=== PATIENT | female | born 1990 | race Caucasian/White ===

== ENCOUNTER 2021-08-04 20:18 | Outpatient (CLI) | payer OTHER ==
[2021-08-04 20:41] VITALS: BP 110/71
[2021-08-04] MEDS ORDERED: LACTATED RINGERS 1,000 ML ONE (21:07)
[2021-08-04 21:46] LABS: Basophils % (Auto) 0.1 % (0.0-1.8); Eosinophils # (Auto) 0.1 K/mm3 (0.0-0.4); Eosinophils % (Auto) 0.6 % (0.0-4.3); Hemoglobin 11.5 gm/dl (10.1-14.3); Lymphocytes # (Auto) 1.7 K/mm3 (1.2-5.4); Lymphocytes % (Auto) 15.1 % (13.4-35.0); Monocytes % (Auto) 8.6 % (0.0-7.3)
[2021-08-04 21:55] LABS: Bilirubin,Urine NEG (Negative); Blood,Urine SM (Negative); Color,Urine Yellow (Yellow); Mucus,Urine 1+ /HPF; Protein,Urine <15 mg/dL mg/dL (Negative); Urobilinogen,Urine < 2.0 mg/dL (<2.0)
[2021-08-04 21:58] LABS: Hematocrit 35.8 % (30.3-42.9); Mean Corpuscular HGB Conc 33 % (30-34); Mean Corpuscular Volume 78 fl (79-97); Platelet Count 373 K/mm3 (140-440); Red Blood Count 4.57 M/mm3 (3.65-5.03); Red Cell Distribution Width 15.1 % (13.2-15.2)
--- NOTE | 2021-08-04 23:20 | Ultrasound Report ---
ULTRASOUND OBSTETRIC LIMITED INDICATION / CLINICAL INFORMATION: Oligohydramnios, Previous . Clinical Gestational Age (GA) in weeks, days: 38 weeks 3 days TECHNIQUE: Transabdominal. COMPARISON: None available. FINDINGS: HEART RATE (beats per minute): 141 AMNIOTIC FLUID INDEX (cm) = 8.5 (normal = 7-24 cm) PRESENTATION: Cephalic. ADDITIONAL FINDINGS: None. IMPRESSION: 1. No significant abnormality. 2. CLEMENTINA measures 8.5 cm, within normal limits. Signer Name: En Amato MD Signed: 08/04/2021 11:15 PM Workstation Name: [id number]
[2021-08-04] MEDS ORDERED: MORPHINE 2 MG/1 ML INJ ONE (23:46)
[2021-08-04] MEDS ORDERED: MORPHINE 4 MG/1 ML INJ ONE (23:47)
[2021-08-04] MEDS ORDERED: MORPHINE 10 MG/1 ML INJ IM ONE (23:48)
--- NOTE | 2021-08-05 04:04 | Ultrasound Report ---
ULTRASOUND OBSTETRIC COMPLETE INDICATION / CLINICAL INFORMATION: EFW. Clinical Gestational Age (GA) in weeks, days: 38 weeks 4 days TECHNIQUE: Transabdominal. COMPARISON: None available. FINDINGS: Single intrauterine in cephalic presentation. MEASUREMENTS: - Biparietal Diameter = 9.0 cm = 36 weeks 3 days - Head Circumference = 31.7 cm = 35 weeks 4 days - Abdominal Circumference = 32.3 cm = 36 weeks 1 day - Femur Length = 7.0 cm = 36 weeks 0 days - Estimated Weight (in grams, if calculated): 2847 - Heart Rate (beats per minute): 149 ADDITIONAL FINDINGS: None. PERCENTILE ESTIMATED WEIGHT (if calculated): Not calculated AVERAGE ULTRASOUND AGE (AUA) in weeks, days = 36 weeks 0 days IMPRESSION: 1. Single intrauterine with AUA of 36 weeks 0 days. Estimated weight is 2847 g. Clini goyo gestational age is reported as 38 weeks and 4 days. Recommend clinical correlation. Signer Name: En Amato MD Signed: 08/05/2021 3:59 AM Workstation Name: [id number]
== END 2021-08-05 07:31 | disposition home or self-care (01) ==
LOC: TRG 20:18 → APU 20:19 → TRG 08-05 07:31
PROVIDERS: ATTEND Obstetrics & Gynecology
DX: Z34.93 Encounter for supervision of normal pregnancy, unspecified, third trimester (principal); Z3A.38 38 weeks gestation of pregnancy
CPT/HCPCS: 36415; 76815; 76816; 81001; 83036; 84112; 85025; J2270

== ENCOUNTER 2021-08-05 23:47 | Inpatient (IN) | payer OTHER ==
[2021-08-06] MEDS ORDERED: LACTATED RINGERS 1,000 ML IV ONE (00:20)
[2021-08-06] MEDS ORDERED: MORPHINE 2 MG/1 ML INJ IM ONE (01:34)
[2021-08-06] MEDS ORDERED: fentaNYL 100 MCG/2 ML INJ IV PRN (04:58)
[2021-08-06] MEDS ORDERED: TERBUTALINE 1 MG/1 ML INJ SUB-Q PRN (04:58)
[2021-08-06] MEDS ORDERED: LIDOCAINE (2%) 20 MG/1 ML VIAL 20 ML MDV INFILTRATI ONE (04:58)
[2021-08-06] MEDS ORDERED: METHYLERGONOVINE MALEATE 0.2 MG/ML VIAL IM PRN (04:58)
[2021-08-06] MEDS ORDERED: CARBOPROST TROMETHAMINE 250 MCG/1 ML INJ IM PRN (04:58)
[2021-08-06] MEDS ORDERED: ePHEDrine SULFATE 50 MG/1 ML INJ IV PRN ×2 (04:58→08:00)
[2021-08-06] MEDS ORDERED: miSOPROStol 200 MCG TAB PR PRN (04:58)
[2021-08-06] MEDS ORDERED: BUTORPHANOL 2 MG/1 ML INJ IV PRN (04:58)
[2021-08-06] MEDS ORDERED: ACETAMINOPHEN 325 MG TAB PO PRN (04:58)
[2021-08-06] MEDS ORDERED: OXYTOCIN DRIP 30 UNITS/500 ML BAG IV SCH (05:00)
--- NOTE | 2021-08-06 05:18 | History and Physical Report ---
History of Present Illness Date of examination: 08/06/21 Date of admission: 08/06/2021 Chief complaint: Contractions History of present illness: 30 y/o at 38-6/7 weeks presents to OBT reporting regular and painful CTX q 5 minutes. No VB or LOF. Good FM. She came to OBT yesterday with the same complaints, given morphine rest, had no cervical change (ftp dilation), and discharged home. Today, cervix changed to 1 cm dilation after receiving morphine rest again. She has a history of previous x2. She is admitted to L&D for further evaluation and management. Past History Past Medical History: no pertinent history Past Surgical History: section Family/Genetic History: none Social history: no significant social history - Obstetrical History Expected Date of Delivery: 08/14/21 Actual Gestation: 38 Week(s) 6 Day(s) : 3 Para: 2 Hx # Term Pregnancies: 2 Medications and Allergies Allergies Allergy/AdvReac Type Severity Reaction Status Date / Time No Known Allergies Allergy Verified 08/04/21 20:47 Review of Systems All systems: negative - Vital Signs Vital signs: Vital Signs Resp 16 08/06/21 02:03 Temp Pulse Resp BP Pulse Ox 16 08/06/21 02:03 - Physical Exam Breasts: Positive: normal Cardiovascular: Regular rate Lungs: Positive: Normal air movement Abdomen: Positive: normal appearance Genitourinary (Female): Positive: normal external genitalia Vulva: both: normal Vagina: Positive: normal moisture Uterus: Positive: enlarged Adnexa: both: normal Anus/Rectum: Positive: normal perianal skin Extremities: Positive: normal Deep Tendon Reflex Grade: Normal +2 - Obstetrical FHR: category 1 Uterine Contraction Monitor Mode: External Cervical Dilatation: 1 Cervical Effacement Percentage: 90 station: -3 Uterine Contraction Frequency (min): 5 Uterine Contraction Pattern: Regular Results Result Diagrams: 08/06/21 06:20 All other labs normal. Ultrasound: report reviewed (OB US Limited (08/04/2021)= SLIUP. Vertex. EFW= 2847 g (12th %-ile). CLEMENTINA= 8.5 cm.) Assessment and Plan - Patient Problems (1) 38 weeks gestation of Current Visit: Yes Status: Acute Plan to address problem: care is up-to-date. GBS (-). (2) Labor abnormality, antepartum Current Visit: Yes Status: Acute Plan to address problem: The patient is currently in latent labor. She received morphine rest yesterday and again today with cervical exam of 1/90%/-3. Epidural to be placed for pain control. Re-examine thereafter. (3) Previous delivery, antepartum Current Visit: Yes Status: Acute Plan to address problem: The patient has 2 previous c-sections.
[2021-08-06 06:35] LABS: Hematocrit 33.3 % (30.3-42.9); Hemoglobin 11.6 gm/dl (10.1-14.3); Mean Corpuscular HGB Conc 35 % (30-34); Mean Corpuscular Volume 78 fl (79-97); Platelet Count 370 K/mm3 (140-440); Red Blood Count 4.29 M/mm3 (3.65-5.03); Red Cell Distribution Width 14.9 % (13.2-15.2)
[2021-08-06] MEDS ORDERED: LACTATED RINGERS 250 ML IV SOLN IV ONE (07:10)
--- NOTE | 2021-08-06 07:55 | Ultrasound Report ---
US OB transvaginal INDICATION / CLINICAL INFORMATION: Previous COMPARISON: None available. FINDINGS/IMPRESSION: Limited sonographic evaluation of the pelvis to evaluate the lower uterine segment wall. Anterior low er uterine segment wall measures 1.3 cm is. Posterior wall is not visualized due to shadowing from a baby's head. Cervical length measures 2.2 cm. Signer Name: En Amato MD Signed: 08/06/2021 7:51 AM Workstation Name: [id number]
[2021-08-06] MEDS ORDERED: fentaNYL-BUPIV 2 MCG/ML-0.125% 200 MCG/100 ML BAG EPIDURAL SCH (08:00)
[2021-08-06] MEDS ORDERED: NalbUPHINE 10 MG/1 ML INJ IV PRN (08:00)
[2021-08-06] MEDS ORDERED: NALOXONE 2 MG/2 ML INJ IV PRN (08:00)
[2021-08-06] MEDS ORDERED: diphenhydrAMINE 50 MG/ML VIAL IV PRN (08:00)
[2021-08-06] MEDS ORDERED: ONDANSETRON 4 MG/2 ML INJ IV PRN ×3 (08:00→17:00)
--- NOTE | 2021-08-06 08:01 | Anesthesia Consultation ---
Anesthesia Consult and Med Hx Date of service: 08/06/21 - Airway Anesthetic Teeth Evaluation: Good ROM Head & Neck: Adequate Mental/Hyoid Distance: Adequate Mallampati Class: Class II Intubation Access Assessment: Probably Good - Pulmonary Exam CTA: Yes - Cardiac Exam Cardiac Exam: RRR - Pre-Operative Health Status ASA Pre-Surgery Classification: ASA2 Proposed Anesthetic Plan: Epidural - Pulmonary Hx Smoking: No Hx Asthma: No Hx Sleep Apnea: No - Cardiovascular System Hx Hypertension: No Hx Heart Attack/AMI: No Hx Angina: No - Central Nervous System Hx Seizures: No - Gastrointestinal Hx Gastroesophageal Reflux Disease: No - Endocrine Hx Renal Disease: No Hx Liver Disease: No Hx Insulin Dependent Diabetes: No Hx Non-Insulin Dependent Diabetes: No Hx Hyperthyroidism: No - Hematic Hx Anemia: No - Other Systems Hx Alcohol Use: No - Additional Comments Anesthesia Medical History Comments: previous c/s x2
--- NOTE | 2021-08-06 08:03 | Progress Note ---
Labor Epidural - Labor Epidural Start Time: 07:50 Stop Time: 08:00 Performed by:: [facility]IT[facility] NOGUEIRA [facility] Procedure: Patient is requesting epidural for labor and pain. H&P, labs were reviewed. Patient IDed, H&P reviewed, all questions and concerns were answered, and consent was signed. Timeout was performed at bedside. Patient in sitting position. Sterile prep and drape was performed. 3ml of 1% lidocaine skin wheal at L[3]- L [4]. 17-gauge Tuohy epidural needle was advanced to loss of resistance with air technique 6cm. Negative CSF negative blood. Epidural catheter advanced to [10] centimeters. [negative] Aspiration [negative] test dose. Sterile dressing applied. Patient tolerated procedure.
[2021-08-06] MEDS ORDERED: BUPIVACAINE/PF (0.25%) 2.5 MG/ML 10 ML VIAL INFILTRATI ONE (09:35)
--- NOTE | 2021-08-06 10:27 | Progress Note ---
Subjective - Subjective Date of service: 08/06/21 Interval history: AROM 9:55 clear fluid by Ms Major CNM FSE/IUPC placed with no complications plan for repeat c/section pt on home for emergency case that precedes acuity) FHT Cat 2, +ve early variables maternal/ well being reassuring overall Stadol 2mg givenx1 dose Shaun Freitas MD Objective - Vital Signs Vital Signs: Vital Signs - 12hr 08/06/21 08/06/21 08/06/21 02:03 05:24 05:29 Pulse Rate 95 H 94 H Respiratory 16 Rate Blood Pressure Blood Pressure [Left] O2 Sat by Pulse 100 100 Oximetry 08/06/21 08/06/21 08/06/21 05:32 05:34 05:39 Pulse Rate 108 H 108 H 78 Respiratory Rate Blood Pressure Blood Pressure [Left] O2 Sat by Pulse 92 99 97 Oximetry 08/06/21 08/06/21 08/06/21 05:44 05:49 05:54 Pulse Rate 81 80 98 H Respiratory Rate Blood Pressure Blood Pressure [Left] O2 Sat by Pulse 95 96 98 Oximetry 08/06/21 08/06/21 08/06/21 06:04 06:06 06:07 Pulse Rate 95 H 80 79 Respiratory Rate Blood Pressure Blood Pressure 134/83 [Left] O2 Sat by Pulse 96 94 Oximetry 08/06/21 08/06/21 08/06/21 06:10 06:11 06:16 Pulse Rate 80 79 85 Respiratory Rate Blood Pressure 134/83 Blood Pressure [Left] O2 Sat by Pulse 97 98 Oximetry 08/06/21 08/06/21 08/06/21 06:18 06:21 06:24 Pulse Rate 104 H 88 25 L Respiratory Rate Blood Pressure Blood Pressure [Left] O2 Sat by Pulse 81 L 99 92 Oximetry 08/06/21 08/06/21 08/06/21 06:26 06:30 06:31 Pulse Rate 92 H 97 H Respiratory Rate Blood Pressure Blood Pressure [Left] O2 Sat by Pulse 96 93 94 Oximetry 08/06/21 08/06/21 08/06/21 06:36 06:37 06:44 Pulse Rate 91 H 84 Respiratory Rate Blood Pressure Blood Pressure [Left] O2 Sat by Pulse 97 94 86 Oximetry 08/06/21 08/06/21 08/06/21 06:46 06:51 06:56 Pulse Rate 75 101 H 97 H Respiratory Rate Blood Pressure Blood Pressure [Left] O2 Sat by Pulse 96 98 98 Oximetry 08/06/21 08/06/21 08/06/21 07:01 07:04 07:06 Pulse Rate 99 H 92 H 89 Respiratory Rate Blood Pressure Blood Pressure [Left] O2 Sat by Pulse 98 89 98 Oximetry 08/06/21 08/06/21 08/06/21 07:11 07:16 07:21 Pulse Rate 85 89 89 Respiratory Rate Blood Pressure Blood Pressure [Left] O2 Sat by Pulse 99 99 97 Oximetry 08/06/21 08/06/21 08/06/21 07:22 07:26 07:31 Pulse Rate 96 H 79 82 Respiratory Rate Blood Pressure Blood Pressure [Left] O2 Sat by Pulse 88 88 98 Oximetry 08/06/21 08/06/21 08/06/21 07:36 07:37 07:41 Pulse Rate 84 69 92 H Respiratory Rate Blood Pressure Blood Pressure [Left] O2 Sat by Pulse 95 94 97 Oximetry 08/06/21 08/06/21 08/06/21 07:45 07:46 07:51 Pulse Rate 95 H 52 L 90 Respiratory Rate Blood Pressure Blood Pressure [Left] O2 Sat by Pulse 93 91 98 Oximetry 08/06/21 08/06/21 08/06/21 07:52 07:54 07:57 Pulse Rate 88 80 90 Respiratory Rate Blood Pressure 136/82 122/64 Blood Pressure [Left] O2 Sat by Pulse 91 91 Oximetry 08/06/21 08/06/21 08/06/21 07:59 08:00 08:02 Pulse Rate 93 H 100 H Respiratory Rate Blood Pressure 140/74 Blood Pressure [Left] O2 Sat by Pulse 62 L 97 Oximetry 08/06/21 08/06/21 08/06/21 08:03 08:05 08:07 Pulse Rate 86 62 85 Respiratory Rate Blood Pressure 150/80 Blood Pressure [Left] O2 Sat by Pulse 75 L 96 Oximetry 08/06/21 08/06/21 08/06/21 08:09 08:12 08:13 Pulse Rate 92 H 68 103 H Respiratory Rate Blood Pressure 175/77 118/61 Blood Pressure [Left] O2 Sat by Pulse 80 L Oximetry 08/06/21 08/06/21 08/06/21 08:17 08:19 08:21 Pulse Rate 111 H 97 H 113 H Respiratory Rate Blood Pressure 138/67 Blood Pressure [Left] O2 Sat by Pulse 96 93 Oximetry 08/06/21 08/06/21 08/06/21 08:22 08:24 08:27 Pulse Rate 106 H 90 99 H Respiratory Rate Blood Pressure 102/55 Blood Pressure [Left] O2 Sat by Pulse 99 92 98 Oximetry 08/06/21 08/06/21 08/06/21 08:30 08:32 08:33 Pulse Rate 86 100 H 101 H Respiratory Rate Blood Pressure 124/62 189/69 Blood Pressure [Left] O2 Sat by Pulse 90 84 Oximetry 08/06/21 08/06/21 08/06/21 08:36 08:37 08:39 Pulse Rate 91 H 95 H 70 Respiratory Rate Blood Pressure 107/55 122/74 Blood Pressure [Left] O2 Sat by Pulse 98 Oximetry 08/06/21 08/06/21 08/06/21 08:42 08:43 08:48 Pulse Rate 59 L 96 H 101 H Respiratory Rate Blood Pressure Blood Pressure [Left] O2 Sat by Pulse 0 L 98 99 Oximetry 08/06/21 08/06/21 08/06/21 08:52 08:53 08:58 Pulse Rate 109 H 107 H 100 H Respiratory Rate Blood Pressure Blood Pressure [Left] O2 Sat by Pulse 93 99 97 Oximetry 08/06/21 08/06/21 08/06/21 09:03 09:06 09:08 Pulse Rate 94 H 69 73 Respiratory Rate Blood Pressure Blood Pressure [Left] O2 Sat by Pulse 98 93 99 Oximetry 08/06/21 08/06/21 08/06/21 09:13 09:18 09:23 Pulse Rate 99 H 109 H 100 H Respiratory Rate Blood Pressure Blood Pressure [Left] O2 Sat by Pulse 98 95 96 Oximetry 08/06/21 08/06/21 08/06/21 09:24 09:28 09:33 Pulse Rate 110 H 115 H 96 H Respiratory Rate Blood Pressure Blood Pressure [Left] O2 Sat by Pulse 67 L 92 89 Oximetry 08/06/21 08/06/21 08/06/21 09:35 09:38 09:41 Pulse Rate 112 H 90 85 Respiratory Rate Blood Pressure Blood Pressure [Left] O2 Sat by Pulse 94 97 92 Oximetry 08/06/21 08/06/21 08/06/21 09:43 09:46 09:49 Pulse Rate 78 71 114 H Respiratory Rate Blood Pressure Blood Pressure [Left] O2 Sat by Pulse 97 84 98 Oximetry 08/06/21 08/06/21 08/06/21 09:54 09:55 09:59 Pulse Rate 105 H 87 132 H Respiratory Rate Blood Pressure Blood Pressure [Left] O2 Sat by Pulse 99 94 99 Oximetry 08/06/21 08/06/21 08/06/21 10:04 10:09 10:12 Pulse Rate 115 H 50 L Respiratory Rate Blood Pressure Blood Pressure [Left] O2 Sat by Pulse 99 98 89 Oximetry 08/06/21 08/06/21 08/06/21 10:14 10:17 10:20 Pulse Rate 121 H 85 126 H Respiratory Rate Blood Pressure Blood Pressure [Left] O2 Sat by Pulse 99 85 99 Oximetry - Labs Labs: Abnormal Labs 08/06/21 06:20 WBC 16.5 H MCV 78 L MCH 27 L MCHC 35 H Laboratory Results - last 24 hr 08/06/21 08/06/21 06:20 06:20 WBC 16.5 H RBC 4.29 Hgb 11.6 Hct 33.3 MCV 78 L MCH 27 L MCHC 35 H RDW 14.9 Plt Count 370 Blood Type A POSITIVE Antibody Screen Negative
[2021-08-06] MEDS ORDERED: FAMOTIDINE 20 MG/2 ML INJ IV ONE ×2 (11:08→14:16)
[2021-08-06] MEDS ORDERED: BICITRA ORAL LIQD 30ML PO ONE (11:08)
[2021-08-06] MEDS ORDERED: METOCLOPRAMIDE 10 MG/2 ML INJ IV ONE (11:08)
[2021-08-06] MEDS ORDERED: LACTATED RINGERS 1,000 ML IV SCH (11:15)
--- NOTE | 2021-08-06 13:10 | Progress Note ---
Subjective - Subjective Date of service: 08/06/21 Interval history: Cat 2 tracing NPO, glass vial bending conveyor feeder to OR awaiting cleaning of OR currently in progress Shaun Freitas MD Objective - Vital Signs Vital Signs: Vital Signs - 12hr 08/06/21 08/06/21 08/06/21 02:03 05:24 05:29 Pulse Rate 95 H 94 H Respiratory 16 Rate Blood Pressure Blood Pressure [Left] O2 Sat by Pulse 100 100 Oximetry 08/06/21 08/06/21 08/06/21 05:32 05:34 05:39 Pulse Rate 108 H 108 H 78 Respiratory Rate Blood Pressure Blood Pressure [Left] O2 Sat by Pulse 92 99 97 Oximetry 08/06/21 08/06/21 08/06/21 05:44 05:49 05:54 Pulse Rate 81 80 98 H Respiratory Rate Blood Pressure Blood Pressure [Left] O2 Sat by Pulse 95 96 98 Oximetry 08/06/21 08/06/21 08/06/21 06:04 06:06 06:07 Pulse Rate 95 H 80 79 Respiratory Rate Blood Pressure Blood Pressure 134/83 [Left] O2 Sat by Pulse 96 94 Oximetry 08/06/21 08/06/21 08/06/21 06:10 06:11 06:16 Pulse Rate 80 79 85 Respiratory Rate Blood Pressure 134/83 Blood Pressure [Left] O2 Sat by Pulse 97 98 Oximetry 08/06/21 08/06/21 08/06/21 06:18 06:21 06:24 Pulse Rate 104 H 88 25 L Respiratory Rate Blood Pressure Blood Pressure [Left] O2 Sat by Pulse 81 L 99 92 Oximetry 08/06/21 08/06/21 08/06/21 06:26 06:30 06:31 Pulse Rate 92 H 97 H Respiratory Rate Blood Pressure Blood Pressure [Left] O2 Sat by Pulse 96 93 94 Oximetry 08/06/21 08/06/21 08/06/21 06:36 06:37 06:44 Pulse Rate 91 H 84 Respiratory Rate Blood Pressure Blood Pressure [Left] O2 Sat by Pulse 97 94 86 Oximetry 08/06/21 08/06/21 08/06/21 06:46 06:51 06:56 Pulse Rate 75 101 H 97 H Respiratory Rate Blood Pressure Blood Pressure [Left] O2 Sat by Pulse 96 98 98 Oximetry 08/06/21 08/06/21 08/06/21 07:01 07:04 07:06 Pulse Rate 99 H 92 H 89 Respiratory Rate Blood Pressure Blood Pressure [Left] O2 Sat by Pulse 98 89 98 Oximetry 08/06/21 08/06/21 08/06/21 07:11 07:16 07:21 Pulse Rate 85 89 89 Respiratory Rate Blood Pressure Blood Pressure [Left] O2 Sat by Pulse 99 99 97 Oximetry 08/06/21 08/06/21 08/06/21 07:22 07:26 07:31 Pulse Rate 96 H 79 82 Respiratory Rate Blood Pressure Blood Pressure [Left] O2 Sat by Pulse 88 88 98 Oximetry 08/06/21 08/06/21 08/06/21 07:36 07:37 07:41 Pulse Rate 84 69 92 H Respiratory Rate Blood Pressure Blood Pressure [Left] O2 Sat by Pulse 95 94 97 Oximetry 08/06/21 08/06/21 08/06/21 07:45 07:46 07:51 Pulse Rate 95 H 52 L 90 Respiratory Rate Blood Pressure Blood Pressure [Left] O2 Sat by Pulse 93 91 98 Oximetry 08/06/21 08/06/21 08/06/21 07:52 07:54 07:57 Pulse Rate 88 80 90 Respiratory Rate Blood Pressure 136/82 122/64 Blood Pressure [Left] O2 Sat by Pulse 91 91 Oximetry 08/06/21 08/06/21 08/06/21 07:59 08:00 08:02 Pulse Rate 93 H 100 H Respiratory Rate Blood Pressure 140/74 Blood Pressure [Left] O2 Sat by Pulse 62 L 97 Oximetry 08/06/21 08/06/21 08/06/21 08:03 08:05 08:07 Pulse Rate 86 62 85 Respiratory Rate Blood Pressure 150/80 Blood Pressure [Left] O2 Sat by Pulse 75 L 96 Oximetry 08/06/21 08/06/21 08/06/21 08:09 08:12 08:13 Pulse Rate 92 H 68 103 H Respiratory Rate Blood Pressure 175/77 118/61 Blood Pressure [Left] O2 Sat by Pulse 80 L Oximetry 08/06/21 08/06/21 08/06/21 08:17 08:19 08:21 Pulse Rate 111 H 97 H 113 H Respiratory Rate Blood Pressure 138/67 Blood Pressure [Left] O2 Sat by Pulse 96 93 Oximetry 08/06/21 08/06/21 08/06/21 08:22 08:24 08:27 Pulse Rate 106 H 90 99 H Respiratory Rate Blood Pressure 102/55 Blood Pressure [Left] O2 Sat by Pulse 99 92 98 Oximetry 08/06/21 08/06/21 08/06/21 08:30 08:32 08:33 Pulse Rate 86 100 H 101 H Respiratory Rate Blood Pressure 124/62 189/69 Blood Pressure [Left] O2 Sat by Pulse 90 84 Oximetry 08/06/21 08/06/21 08/06/21 08:36 08:37 08:39 Pulse Rate 91 H 95 H 70 Respiratory Rate Blood Pressure 107/55 122/74 Blood Pressure [Left] O2 Sat by Pulse 98 Oximetry 08/06/21 08/06/21 08/06/21 08:42 08:43 08:48 Pulse Rate 59 L 96 H 101 H Respiratory Rate Blood Pressure Blood Pressure [Left] O2 Sat by Pulse 0 L 98 99 Oximetry 08/06/21 08/06/21 08/06/21 08:52 08:53 08:58 Pulse Rate 109 H 107 H 100 H Respiratory Rate Blood Pressure Blood Pressure [Left] O2 Sat by Pulse 93 99 97 Oximetry 08/06/21 08/06/21 08/06/21 09:03 09:06 09:08 Pulse Rate 94 H 69 73 Respiratory Rate Blood Pressure Blood Pressure [Left] O2 Sat by Pulse 98 93 99 Oximetry 08/06/21 08/06/21 08/06/21 09:13 09:18 09:23 Pulse Rate 99 H 109 H 100 H Respiratory Rate Blood Pressure Blood Pressure [Left] O2 Sat by Pulse 98 95 96 Oximetry 08/06/21 08/06/21 08/06/21 09:24 09:28 09:33 Pulse Rate 110 H 115 H 96 H Respiratory Rate Blood Pressure Blood Pressure [Left] O2 Sat by Pulse 67 L 92 89 Oximetry 08/06/21 08/06/21 08/06/21 09:35 09:38 09:41 Pulse Rate 112 H 90 85 Respiratory Rate Blood Pressure Blood Pressure [Left] O2 Sat by Pulse 94 97 92 Oximetry 08/06/21 08/06/21 08/06/21 09:43 09:46 09:49 Pulse Rate 78 71 114 H Respiratory Rate Blood Pressure Blood Pressure [Left] O2 Sat by Pulse 97 84 98 Oximetry 08/06/21 08/06/21 08/06/21 09:54 09:55 09:59 Pulse Rate 105 H 87 132 H Respiratory Rate Blood Pressure Blood Pressure [Left] O2 Sat by Pulse 99 94 99 Oximetry 08/06/21 08/06/21 08/06/21 10:04 10:09 10:12 Pulse Rate 115 H 50 L Respiratory Rate Blood Pressure Blood Pressure [Left] O2 Sat by Pulse 99 98 89 Oximetry 08/06/21 08/06/21 08/06/21 10:14 10:17 10:20 Pulse Rate 121 H 85 126 H Respiratory Rate Blood Pressure Blood Pressure [Left] O2 Sat by Pulse 99 85 99 Oximetry 08/06/21 08/06/21 08/06/21 10:24 10:25 10:30 Pulse Rate 91 H 95 H 84 Respiratory Rate Blood Pressure Blood Pressure [Left] O2 Sat by Pulse 93 95 92 Oximetry 08/06/21 08/06/21 08/06/21 10:35 10:36 10:45 Pulse Rate 93 H 94 H 101 H Respiratory Rate Blood Pressure Blood Pressure [Left] O2 Sat by Pulse 99 89 93 Oximetry 08/06/21 08/06/21 08/06/21 10:46 10:48 10:50 Pulse Rate 105 H 100 H 99 H Respiratory Rate Blood Pressure 114/63 115/65 Blood Pressure [Left] O2 Sat by Pulse 94 Oximetry 08/06/21 08/06/21 08/06/21 10:51 10:56 10:58 Pulse Rate 127 H 109 H 118 H Respiratory Rate Blood Pressure 109/58 Blood Pressure [Left] O2 Sat by Pulse 100 55 L 62 L Oximetry 08/06/21 08/06/21 08/06/21 11:01 11:06 11:11 Pulse Rate 106 H 98 H 109 H Respiratory Rate Blood Pressure Blood Pressure [Left] O2 Sat by Pulse 60 L 61 L 62 L Oximetry 08/06/21 08/06/21 08/06/21 11:13 11:16 11:21 Pulse Rate 107 H 108 H 110 H Respiratory Rate Blood Pressure 99/54 Blood Pressure [Left] O2 Sat by Pulse 65 L 61 L Oximetry 08/06/21 08/06/21 08/06/21 11:26 11:28 11:31 Pulse Rate 104 H 105 H 105 H Respiratory Rate Blood Pressure 98/55 Blood Pressure [Left] O2 Sat by Pulse 56 L 65 L 55 L Oximetry 08/06/21 08/06/21 08/06/21 11:36 11:41 11:43 Pulse Rate 99 H 95 H 102 H Respiratory Rate Blood Pressure 96/53 Blood Pressure [Left] O2 Sat by Pulse 52 L 53 L 64 L Oximetry 08/06/21 08/06/21 08/06/21 11:46 11:51 11:56 Pulse Rate 115 H 105 H 119 H Respiratory Rate Blood Pressure Blood Pressure [Left] O2 Sat by Pulse 50 L 98 98 Oximetry 08/06/21 08/06/21 08/06/21 11:59 12:01 12:06 Pulse Rate 109 H 117 H 114 H Respiratory Rate Blood Pressure 96/52 Blood Pressure [Left] O2 Sat by Pulse 97 97 Oximetry 08/06/21 08/06/21 08/06/21 12:11 12:14 12:16 Pulse Rate 111 H 112 H 120 H Respiratory Rate Blood Pressure 92/50 Blood Pressure [Left] O2 Sat by Pulse 97 97 Oximetry 08/06/21 08/06/21 08/06/21 12:21 12:26 12:28 Pulse Rate 109 H 111 H 117 H Respiratory Rate Blood Pressure 93/51 Blood Pressure [Left] O2 Sat by Pulse 96 97 Oximetry 08/06/21 08/06/21 08/06/21 12:31 12:36 12:41 Pulse Rate 111 H 100 H 108 H Respiratory Rate Blood Pressure Blood Pressure [Left] O2 Sat by Pulse 97 96 96 Oximetry 08/06/21 08/06/21 08/06/21 12:43 12:46 12:48 Pulse Rate 106 H 108 H 139 H Respiratory Rate Blood Pressure 93/54 87/52 Blood Pressure [Left] O2 Sat by Pulse 96 Oximetry 08/06/21 08/06/21 08/06/21 12:51 12:52 12:56 Pulse Rate 140 H 157 H 167 H Respiratory Rate Blood Pressure 99/56 Blood Pressure [Left] O2 Sat by Pulse 93 77 L Oximetry 08/06/21 08/06/21 08/06/21 12:59 13:01 13:06 Pulse Rate 123 H 128 H 127 H Respiratory Rate Blood Pressure 109/71 Blood Pressure [Left] O2 Sat by Pulse 100 92 Oximetry - Labs Labs: Abnormal Labs 08/06/21 06:20 WBC 16.5 H MCV 78 L MCH 27 L MCHC 35 H Laboratory Results - last 24 hr 08/06/21 08/06/21 06:20 06:20 WBC 16.5 H RBC 4.29 Hgb 11.6 Hct 33.3 MCV 78 L MCH 27 L MCHC 35 H RDW 14.9 Plt Count 370 Blood Type A POSITIVE Antibody Screen Negative
--- NOTE | 2021-08-06 13:17 | Procedure Note ---
OB Delivery Note - Delivery Date of Delivery: 08/06/21 Surgeon: BRYSON RUBIN - Section Preop diagnosis: desires sterilization Postop diagnosis: same section procedure: repeat low transverse, bilateral tubal ligation Disposition: PACU Complications: none Narrative: Preop diagnosis: IUP at 38.6 weeks, previous c/sectionx2, multparity desires surgical sterilization Postop diagnosis: Same Procedure: Repeat low transverse section via Pfannenstiel incision with Modfied [place] Bilateral Tubal ligation Surgeon: Dr. Bryson Rubin Anesthesia spinal Complications none EBL 500ml IV fluids 1000mL Urine output 200mL, clear Drains Boyle to gravity Findings: Viable female with weight 2820gms and 8/9, normal uterus tubes and ovaries bilaterally Procedure: Patient was consented in room 2007 with a paraprofessional interpreter, taken to the operating room where she received excellent spinal anesthesia. She was then placed in the dorsal supine position with a leftward tilt. The abdomen was prepped and draped in a sterile fashion, and a timeout was verified. Adequate anesthesia was confirmed prior to the skin incision. A Pfannenstiel skin incision was made with a scalpel taken down to the underlying structures and the fascia was incised in the midline. The incision was extended laterally with curved Romano scissors, the superior and inferior aspects of the fascial incisions were grasped with Dl clamps and the rectus muscles dissected sharply. The abdomen was entered bluntly in the midline carried down inferiorly with good visualization of the bladder. The vesicouterine peritoneum was tented with [place] forceps and incised in the midline with Metzenbaum scissors and the vesicouterine peritoneum taken down sharply. The uterine incision was then made sharply with a scalpel. The inferior and superior aspect of the uterine incisions were extended bluntly, the baby's head was delivered atraumatically. The remainder of the delivery was uncomplicated, no nuchal cord. The cord was clamped and cut and baby handed to waiting NICU team. An intact placenta with three-vessel cord delivered manually. The uterus was then cleared of all clots and debris and the uterus exteriorized. The uterine incision was closed in 2 layers of 0 vicryl with excellent hemostasis. Attention then turned to the fallopian tubes which were suture ligated in the usual fashion with excellent hemostasis. The abdomen was then irrigated with warm normal saline and the uterus placed back into the abdomen atraumatically. A second look at the uterine incision assured hemostasis. The peritoneum was closed with 3-0 Vicryl, the rectus muscles approximated with 3-0 Vicryl, and the fascia closed with 0 Vicryl in the usual fashion. The subcuticular structures were closed with interrupted sutures of 3-0 Vicryl and the skin closed with 4-0 Monocryl. A pressure dressing was applied. All sponge needle and instrument counts were correct x2. There were no complications. Mom and baby stable to PACU. EBL 500 mL Shaun Rubin MD
[2021-08-06] MEDS ORDERED: KETOROLAC 30 MG/1 ML INJ ONE (13:22)
[2021-08-06] MEDS ORDERED: LIDOCAINE 2%/EPINEPHRINE 1:200,000 VIAL (20 ML) INFILTRATI ONE (13:22)
[2021-08-06] MEDS ORDERED: ONDANSETRON 4 MG/2 ML INJ ONE (13:22)
[2021-08-06] MEDS ORDERED: METOCLOPRAMIDE 10 MG/2 ML INJ ONE (14:16)
[2021-08-06] MEDS ORDERED: BICITRA ORAL LIQD 30ML ONE (14:16)
[2021-08-06] MEDS ORDERED: ceFAZolin/Water 2 GM/20 ML 2 GM/20 ML SYRINGE IV ONE (14:17)
--- NOTE | 2021-08-06 14:26 | Progress Note ---
Labor Epidural - Labor Epidural Start Time: 10:40 Stop Time: 10:50 Performed by:: PAPITO NOGUEIRA Procedure: Patient is requesting epidural for labor and pain. H&P, labs were reviewed. Patient IDed, H&P reviewed, all questions and concerns were answered, and consent was signed. Timeout was performed at bedside. Patient in sitting position. Sterile prep and drape was performed. 3ml of 1% lidocaine skin wheal at L[3]- L [4]. 17-gauge Tuohy epidural needle was advanced to loss of resistance with air technique 7cm. Negative CSF negative blood. Epidural catheter advanced to [12] centimeters. [negative] Aspiration [negative] test dose. Sterile dressing applied. Patient tolerated procedure.
--- NOTE | 2021-08-06 14:26 | Anesthesia Day of Surgery ---
Anesthesia Day of Surgery - Day of Surgery Patient Examined: Yes Patient H&P Reviewed: Yes Patient is NPO: Yes Beta Blockers: No Cardiac Clearance: No Pulmonary Clearance: No Akash's Test: N/A
[2021-08-06] MEDS: LACTATED RINGERS 1,000 ML IV SCH ×2 (14:32→22:06)
[2021-08-06] MEDS ORDERED: PROMETHAZINE 25 MG RECT SUPP PR PRN ×2 (15:00→17:00)
[2021-08-06] MEDS ORDERED: NALOXONE 0.4 MG/1 ML INJ IV PRN ×2 (15:00→17:00)
[2021-08-06] MEDS ORDERED: PROMETHAZINE 25 MG TAB PO PRN (15:00)
[2021-08-06] MEDS ORDERED: HYDROmorphone 1 MG/1 ML INJ IV PRN (15:00)
[2021-08-06] MEDS ORDERED: dexAMETHasone 20 MG/5 ML VIAL ONE (16:15)
[2021-08-06] MEDS ORDERED: BUPIVACAINE/PF (0.25%) 2.5 MG/ML 30 ML VIAL INFILTRATI ONE (16:15)
[2021-08-06] MEDS ORDERED: PHENYLEPHRINE/NS 1,000 MCG/10 ML SYRINGE (OR USE) IV ONE (16:15)
[2021-08-06] MEDS ORDERED: SIMETHICONE 80 MG CHEW TAB PO PRN (17:00)
[2021-08-06] MEDS ORDERED: LANOLIN/ZINC/DIMETHICONE (LANSINOH) 7 GM TP PRN (17:00)
[2021-08-06] MEDS ORDERED: MORPHINE 2 MG/1 ML INJ IV PRN (17:00)
[2021-08-06] MEDS ORDERED: IBUPROFEN 800 MG TAB PO PRN (17:00)
[2021-08-06] MEDS ORDERED: MORPHINE 4 MG/1 ML INJ IV PRN (17:00)
[2021-08-06] MEDS ORDERED: ACETAMINOPHEN 650 MG RECT SUPP PR PRN (17:00)
[2021-08-06] MEDS ORDERED: HYDROcodone/ACETAMINOPHEN 5-325 MG TAB PO PRN (17:00)
[2021-08-06] MEDS ORDERED: WITCH HAZEL/ GLYCERIN PAD TP PRN (17:00)
[2021-08-06] MEDS ORDERED: SENNOSIDES 8.6 MG TAB PO PRN (22:00)
[2021-08-06] MEDS ORDERED: MAGNESIUM HYDROXIDE (MOM) ORAL LIQD UDC PO PRN (22:00)
[2021-08-06] MEDS ORDERED: HYDROCORTISONE 25 MG RECTAL SUPP PR PRN (22:00)
[2021-08-06] MEDS: KETOROLAC 30 MG/1 ML INJ IV PRN (22:16)
[2021-08-07 05:04] LABS: Hematocrit 28.2 % (30.3-42.9); Hemoglobin 9.7 gm/dl (10.1-14.3)
[2021-08-07] MEDS: LACTATED RINGERS 1,000 ML IV SCH (05:45)
[2021-08-07] MEDS: KETOROLAC 30 MG/1 ML INJ IV PRN (05:45)
--- NOTE | 2021-08-07 10:35 | Progress Note ---
Assessment and Plan A: S/P LTCS with BTL Asymptomatic anemia P: Continue routine pp orders Fe as prescribed Encourage Fe rich foods and ambulation D/c home within 24-48 hrs if stable - Patient Problems (1) delivery delivered Current Visit: Yes Status: Acute Subjective - Subjective Date of service: 08/07/21 Principal diagnosis: s/p repeat LTCS with BTL Patient reports: appetite normal, voiding normally, pain well controlled, flatus, ambulating normally : doing well, bottle feeding Objective - Vital Signs Latest vital signs: Vital Signs Temp Pulse Resp BP BP Pulse Ox Pulse Ox 08/07/21 08:26 98.1 F 87 18 92/53 95 08/07/21 05:45 18 08/07/21 00:10 98.0 F 76 20 118/63 98 08/06/21 23:42 98.0 F 76 20 106/65 95 08/06/21 22:16 18 08/06/21 20:00 96 08/06/21 19:52 98.2 F 79 20 104/56 97 08/06/21 18:25 98.2 F 81 20 105/65 96 08/06/21 17:30 98.6 F 85 15 98/61 96 08/06/21 17:15 87 16 102/62 97 08/06/21 17:00 84 15 100/57 97 08/06/21 16:45 85 16 97/57 08/06/21 16:40 87 16 96/53 98 08/06/21 16:35 88 14 93/60 97 08/06/21 16:30 98.6 F 86 17 100/63 98 08/06/21 14:50 127 H 98 08/06/21 14:45 119 H 98 08/06/21 14:40 116 H 99 08/06/21 14:35 111 H 100 08/06/21 14:30 99 08/06/21 14:29 125 H 108/67 08/06/21 14:26 122 H 99 08/06/21 14:21 99 H 97 08/06/21 14:16 94 H 97 08/06/21 14:14 104 H 107/59 08/06/21 14:11 114 H 97 08/06/21 14:06 98 H 99 08/06/21 14:01 89 99 08/06/21 13:59 101 H 103/61 08/06/21 13:56 108 H 99 08/06/21 13:51 98 H 100 08/06/21 13:48 54 L 90 08/06/21 13:46 107 H 98 08/06/21 13:43 113 H 98/59 08/06/21 13:41 117 H 98 08/06/21 13:36 92 H 98 08/06/21 13:31 109 H 98 08/06/21 13:29 122 H 101/62 91 08/06/21 13:26 103 H 98 08/06/21 13:21 98 H 97 08/06/21 13:16 110 H 95 08/06/21 13:14 111 H 87 08/06/21 13:13 125 H 106/64 08/06/21 13:11 105 H 70 L 08/06/21 13:06 127 H 92 08/06/21 13:01 128 H 100 08/06/21 12:59 123 H 109/71 08/06/21 12:56 167 H 77 L 08/06/21 12:52 157 H 99/56 08/06/21 12:51 140 H 93 08/06/21 12:48 139 H 87/52 08/06/21 12:46 108 H 96 08/06/21 12:43 106 H 93/54 08/06/21 12:41 108 H 96 08/06/21 12:36 100 H 96 08/06/21 12:31 111 H 97 08/06/21 12:28 117 H 93/51 08/06/21 12:26 111 H 97 08/06/21 12:21 109 H 96 08/06/21 12:16 120 H 97 08/06/21 12:14 112 H 92/50 08/06/21 12:11 111 H 97 08/06/21 12:06 114 H 97 08/06/21 12:01 117 H 97 08/06/21 11:59 109 H 96/52 08/06/21 11:56 119 H 98 08/06/21 11:51 105 H 98 08/06/21 11:46 115 H 50 L 08/06/21 11:43 102 H 96/53 64 L 08/06/21 11:41 95 H 53 L 08/06/21 11:36 99 H 52 L 08/06/21 11:31 105 H 55 L 08/06/21 11:28 105 H 98/55 65 L 08/06/21 11:26 104 H 56 L 08/06/21 11:21 110 H 61 L 08/06/21 11:16 108 H 65 L 08/06/21 11:13 107 H 99/54 08/06/21 11:11 109 H 62 L 08/06/21 11:06 98 H 61 L 08/06/21 11:01 106 H 60 L 08/06/21 10:58 118 H 109/58 62 L 08/06/21 10:56 109 H 55 L 08/06/21 10:51 127 H 100 08/06/21 10:50 99 H 115/65 08/06/21 10:48 100 H 114/63 08/06/21 10:46 105 H 94 08/06/21 10:45 101 H 93 08/06/21 10:36 94 H 89 08/06/21 10:35 93 H 99 Intake and Output 08/06/21 08/07/21 08/07/21 22:59 06:59 14:59 Intake Total 2925.833 956.25 Output Total 1850 1400 Balance 1075.833 -443.75 Intake: IV 2445.833 956.25 Lactated Ringers 1,000 ml 945.833 956.25 @ 125 mls/hr IV DIRECT BARBARA Rx#:[id number] Oral 480 Output: Urine 1850 1400 Indwelling Catheter 600 1400 Uretheral (Boyle) 600 Other: Total, Intake Amount 240 Total, Output Amount 600 600 Estimated Blood Loss 500 - Exam Breasts: Present: normal Abdomen: Present: normal appearance, soft, normal bowel sounds Vulva: both: normal Uterus: Present: normal, firm, fundal height below umbilicus Extremities: Present: normal Incision: Present: normal, dry, intact - Labs Labs: Abnormal lab results 08/07/21 Range/Units 04:48 Hgb 9.7 L (10.1-14.3) gm/dl Hct 28.2 L (30.3-42.9) %
[2021-08-07] MEDS: oxyCODONE /ACETAMINOPHEN 5-325MG TAB PO PRN ×2 (17:14→22:02)
[2021-08-07] MEDS: FERROUS SULFATE 325 MG TAB PO SCH (22:02)
[2021-08-08] MEDS: IBUPROFEN 600 MG TAB PO PRN (06:03)
--- NOTE | 2021-08-08 11:31 | Progress Note ---
Assessment and Plan A: day 2 S/P repeat LTCS with BTL. Anemia. P: Continue iron supplementation. Repeat CBC. Anticipate discharge home later today or tomorrow morning. Continue routine /postop care. Subjective - Subjective Date of service: 08/08/21 Principal diagnosis: day 2 s/p repeat LTCS with BTL Patient reports: appetite normal, voiding normally, pain well controlled, flatus, ambulating normally, no dizzy ambulation, no nauseated : doing well Objective - Vital Signs Latest vital signs: Vital Signs Temp Pulse Resp BP BP Pulse Ox Pulse Ox 08/08/21 08:56 98.4 F 67 20 99/56 97 08/08/21 06:03 18 08/08/21 00:04 98.5 F 82 20 105/62 96 08/07/21 23:02 18 08/07/21 22:02 18 08/07/21 20:33 99 08/07/21 16:26 97.9 F 83 18 113/63 96 Intake and Output 08/07/21 08/08/21 08/08/21 23:59 07:59 15:59 Intake Total 240 120 120 Balance 240 120 120 Intake: Oral 120 120 Intake, Free Water 240 Other: Total, Intake Amount 120 120 # Voids Void 1 2 1 - Exam Cardiovascular: Present: Regular rate Lungs: Present: Clear to auscultation Abdomen: Present: normal appearance, soft, normal bowel sounds. Absent: distention, tenderness, guarding, rigidity Uterus: Present: normal, firm, fundal height below umbilicus. Absent: bogginess, tenderness Extremities: Absent: tenderness Incision: Present: intact
[2021-08-08] MEDS: FERROUS SULFATE 325 MG TAB PO SCH ×2 (12:01→21:52)
[2021-08-08 13:15] LABS: Basophils % (Auto) 0.2 % (0.0-1.8); Eosinophils # (Auto) 0.1 K/mm3 (0.0-0.4); Eosinophils % (Auto) 0.4 % (0.0-4.3); Hematocrit 30.5 % (30.3-42.9); Hemoglobin 10.3 gm/dl (10.1-14.3); Lymphocytes # (Auto) 1.8 K/mm3 (1.2-5.4); Lymphocytes % (Auto) 12.4 % (13.4-35.0); Mean Corpuscular HGB Conc 34 % (30-34); Mean Corpuscular Volume 79 fl (79-97); Monocytes # (Auto) 0.7 K/mm3 (0.0-0.8); Monocytes % (Auto) 5.2 % (0.0-7.3); Platelet Count 325 K/mm3 (140-440); Red Blood Count 3.85 M/mm3 (3.65-5.03); Red Cell Distribution Width 15.1 % (13.2-15.2)
[2021-08-08] MEDS: oxyCODONE /ACETAMINOPHEN 5-325MG TAB PO PRN (23:46)
[2021-08-09] MEDS: IBUPROFEN 600 MG TAB PO PRN (05:18)
--- NOTE | 2021-08-09 07:19 | Progress Note ---
Assessment and Plan A: /postop day 3 S/P repeat LTCS with BTL. Anemia. P: Discharge patient home today. Discussed with patient /postop disch arge instructions and warning signs. Advised patient to continue taking vitamins and iron supplements at home (Rx left on chart for patient). Advised patient to avoid intercourse, lifting, housework, driving, stair climbing, tub baths (patient may take showers). Advised patient to follow up at [facility] in 1 week. Patient voiced understanding of all instructions. Subjective - Subjective Date of service: 08/09/21 Principal diagnosis: day 3 s/p repeat LTCS with BTL Interval history: Patient desires discharge home today. Patient reports: appetite normal, voiding normally, pain well controlled, flatus, ambulating normally, no dizzy ambulation, no nauseated [place]: doing well Objective - Vital Signs Latest vital signs: Vital Signs Temp Pulse Resp BP BP Pulse Ox Pulse Ox 08/09/21 05:18 18 08/09/21 01:39 97.9 F 67 16 113/67 98 08/08/21 23:46 20 08/08/21 19:30 98 08/08/21 16:39 98.5 F 67 18 111/66 97 08/08/21 08:56 98.4 F 67 20 99/56 97 08/08/21 08:03 98 Intake and Output 08/08/21 08/08/21 08/09/21 15:59 23:59 07:59 Intake Total 120 1135 600 Balance 120 1135 600 Intake: Oral 120 655 Intake, Free Water 480 600 Other: Total, Intake Amount 120 655 # Voids Void 1 3 1 - Exam Abdomen: Present: normal appearance, soft, normal bowel sounds. Absent: distention, tenderness, guarding, rigidity Uterus: Present: normal, firm, fundal height below umbilicus. Absent: bogginess, tenderness Extremities: Absent: tenderness Incision: Present: dry, intact - Labs Labs: Abnormal lab results 08/08/21 Range/Units 12:12 WBC 14.4 H (4.5-11.0) K/mm3 MCH 27 L (28-32) pg Lymph % (Auto) 12.4 L (13.4-35.0) % Seg Neutrophils % 81.8 H (40.0-70.0) % Seg Neutrophils # 11.8 H (1.8-7.7) K/mm3
--- NOTE | 2021-08-09 07:23 | Discharge Summary ---
Providers - Providers Date of Admission: 08/06/21 04:58 Date of discharge: 08/09/21 Attending physician: ALEXIS REGALADO MD Primary care physician: ALEXIS REGALADO MD Hospitalization Reason for admission: section Delivery: Procedure: bilateral tubal ligation, repeat low transverse Incision: dry, intact complications: none Discharge diagnosis: IUP at term delivered baby: female Pertinent studies: Labs Hospital course: Stable hospital course Condition at discharge: Good Disposition: 01 HOME / SELF CARE / HOMELESS - Discharge Diagnoses (1) Term delivered Status: Acute (2) Anemia Status: Acute Plan - Discharge Medications Prescriptions: Ferrous Sulfate [Feosol 325 MG tab] 325 mg PO QDAY 30 Days #30 tablet Ibuprofen [Motrin] 600 mg PO Q8H PRN #60 tablet PRN Reason: Pain Ibuprofen [Motrin] 800 mg PO Q8HR PRN #60 tablet PRN Reason: Pain , Severe (7-10) oxyCODONE /ACETAMINOPHEN [Percocet 5/325] 1 tab PO Q6HR PRN #20 tablet PRN Reason: Pain oxyCODONE /ACETAMINOPHEN [Percocet 5/325] 1 tab PO Q6HR PRN #30 tablet PRN Reason: Pain Vit-Fe Fumar-FA [ Vitamin] 1 tab PO QDAY 30 Days #30 tablet - Provider Discharge Summary Activity: routine, no sex for 6 weeks, no heavy lifting 4 weeks, no strenuous exercise Diet: routine Instructions: routine Additional instructions: Continue taking vitamin and iron supplements at home. Follow up at [facility] in 1 week. Call your doctor immediately for: * Fever > 100.5 * Heavy vaginal bleeding ( >1 pad per hour) * Severe persistent headache * Shortness of breath * Reddened, hot, painful area to leg or breast * Drainage or odor from incision. * Keep incision clean and dry at all times and follow doctor's instructions regarding bathing/showering - Follow up plan Follow up: SHAYE NICKERSON CNM [Advanced Practice Nurse] - 7 Days
[2021-08-09 07:40] LABS: Bilirubin,Urine NEG (Negative); Blood,Urine LG (Negative); Color,Urine Yellow (Yellow); Mucus,Urine FEW /HPF; Protein,Urine <15 mg/dL mg/dL (Negative); Urobilinogen,Urine < 2.0 mg/dL (<2.0)
[2021-08-09 09:07] VITALS: BP 110/68
[2021-08-09] MEDS: oxyCODONE /ACETAMINOPHEN 5-325MG TAB PO PRN (10:36)
== END 2021-08-09 11:30 | disposition home or self-care (01) | DRG 785 ==
LOC: TRG 23:47 → APU 23:50 → LD 08-06 04:58 → TRG 08-06 04:58 → LD 08-06 06:04 → APU 08-06 15:05 → OB 08-06 18:27
PROVIDERS: ADMIT Obstetrics & Gynecology Gynecology; ATTEND Obstetrics & Gynecology Gynecology
PROC: 10D00Z1 Extraction of Products of Conception, Low, Open Approach (ICD-10-PCS; principal; 2021-08-06)
PROC: 10H07YZ Insertion of Other Device into Products of Conception, Via Natural or Artificial Opening (ICD-10-PCS; 2021-08-06)
PROC: 0UB70ZZ Excision of Bilateral Fallopian Tubes, Open Approach (ICD-10-PCS; 2021-08-06)
DX: O34.211 Maternal care for low transverse scar from previous cesarean delivery (principal); Z3A.38 38 weeks gestation of pregnancy; Z37.0 Single live birth; Z30.2 Encounter for sterilization; Z20.822 Contact with and (suspected) exposure to COVID-19; O90.81 Anemia of the puerperium
CPT/HCPCS: 36415; 76817; 81001; 85014; 85018; 85025; 85027; 86850; 86900; 86901; 88302; 88307; G0378; J3490; J0595; J1100; J1885; J2270; J2370; J2405; J2765; J7120; U0003